=== PATIENT | female | born 1975 | race American Indian/Alaskan Native ===

== ENCOUNTER 2018-11-10 08:04 | Emergency (ER) | payer MEDICAID ==
[2018-11-10] MEDS ORDERED: NORCO 5/325 PO ONE (10:03)
--- NOTE | 2018-11-10 10:09 | Emergency Department Report ---
ED Lower Extremity HPI - General Chief Complaint: Extremity Injury, Lower Stated Complaint: LFT LEG SEWLLING/DIABETIC Time Seen by Provider: 11/10/18 09:34 Source: patient Mode of arrival: Ambulatory Limitations: No Limitations - History of Present Illness Initial Comments: Ms. Shetty is a 43 yo female with hx of IDDM who presents with bilateral feet p ain for the past several days. Started new job in [employer]. Has new shoes. Has had neuropathic pain in legs before, never in feet. Had been followed by neurologist in [place]. Recently moved to [place]. [facility] PCP Dr. Gleason. MORALES Complaint: other (bilateral feet pain) -: Gradual, days(s) (several) Injury: Foot: Right, Left Type of Injury: unknown Severity: moderate Improves With: NSAID (Ibuprofen) Associated Symptoms: ambulatory - Related Data Previous Rx's Medication Instructions Recorded Last Taken Type Gabapentin [Neurontin] 100 mg PO Q8HR 30 Days #90 capsule 11/10/18 Unknown Rx Allergies Allergy/AdvReac Type Severity Reaction Status Date / Time No Known Allergies Allergy Unverified 11/10/18 08:06 ED Review of Systems ROS: Stated complaint: LFT LEG SEWLLING/DIABETIC Other details as noted in HPI Constitutional: denies: fever, malaise Neurological: denies: weakness, numbness, paresthesias ED Past Medical Hx - Past Medical History Previous Medical History?: Yes Hx Diabetes: Yes - Surgical History Past Surgical History?: Yes Additional Surgical History: C section - Social History Smoking Status: Current Every Day Smoker Substance Use Type: None - Medications Home Medications: Home Medications Medication Instructions Recorded Confirmed Last Taken Type Gabapentin [Neurontin] 100 mg PO Q8HR 30 Days #90 capsule 11/10/18 Unknown Rx ED Physical Exam - General Limitations: No Limitations General appearance: alert, in no apparent distress - Head Head exam: Present: atraumatic, normocephalic - ENT ENT exam: Present: mucous membranes moist - Neck Neck exam: Present: normal inspection, full ROM - Respiratory Respiratory exam: Absent: respiratory distress - Extremities Exam Extremities exam: Present: normal inspection, full ROM, normal capillary refill, other (old scar right ankle). Absent: tenderness - Neurological Exam Neurological exam: Present: alert, oriented X3 - Psychiatric Psychiatric exam: Present: normal affect, normal mood - Skin Skin exam: Present: warm, dry, intact, normal color ED Course Vital Signs 11/10/18 08:24 Temperature 98.2 F Pulse Rate 89 Respiratory 18 Rate Blood Pressure 140/72 O2 Sat by Pulse 100 Oximetry ED Lower Extremity MDM - Medical Decision Making Bilateral foot pain: Differential diagnosis includes diabetic neuropathy, plantar fasciitis, foot strain Prescribed gabapentin, referred to ankle commercial specialist Critical care attestation.: If time is entered above; I have spent that time in minutes in the direct care of this critically ill patient, excluding procedure time. ED Disposition Clinical Impression: Bilateral foot pain, Diabetes mellitus Disposition: - TO HOME OR SELFCARE Is pt being admited?: No Does the pt Need Aspirin: No Condition: Stable Instructions: Diabetic Neuropathy (ED), Plantar Fasciitis (ED) Prescriptions: Gabapentin [Neurontin] 100 mg PO Q8HR 30 Days #90 capsule Referrals: RANI TURNER JR, MD [Primary Care Provider] - 3-5 Days SANGITA CONN DPM [Staff Physician] - 3-5 Days Forms: Work/School Release Form(ED)
[2018-11-10 10:17] VITALS: BP 122/73
== END 2018-11-10 10:17 | disposition home or self-care (01) ==
LOC: ED 08:04
DX: M79.671 Pain in right foot (principal); M79.672 Pain in left foot; E11.9 Type 2 diabetes mellitus without complications; F17.200 Nicotine dependence, unspecified, uncomplicated
CPT/HCPCS: 99282